=== PATIENT | male | born 1970 | race Caucasian/White ===

== ENCOUNTER 2023-08-14 14:47 | Emergency (ER) | payer SELFPAY ==
[2023-08-14 14:56] VITALS: BP 178/103; PULSE 68; RESP 18; TEMP 36.9; O2SAT 96; BMI 29.9
--- NOTE | 2023-08-14 15:20 | ED_ITS ---
HPI - Extremity Injury (Lower) General: Chief Complaint: Extremity Injury, Lower Stated Complaint: Left Knee Time Seen by Provider: 08/14/23 15:06 Source: patient Mode of arrival: wheelchair Limitations: no limitations History of Present Illness: Patient is a 52-year-old male who presents to the ED today for evaluation of a left knee injury that he sustained last week. Patient states he was working on his car when it fell off the iam causing it to roll and strike his left knee. Patient states he has been minimally ambulatory on the extremity but he feels like pain is not improving. He feels like knee is swollen. He feels like he tore something . complaint: knee injury Onset (ago): day(s) Injury: Left: knee Type of Injury: blunt Place: home Severity: moderate Relieving factors: immobilization Exacerbating factors: weight bearing, movement and palpation Context: direct blow Associated symptoms: Reports inability to bear weight Other symptoms: none Treatments prior to arrival: bandage Review of Systems Card: Denies: chest pain Resp: Denies: dyspnea Musc: Reports: joint pain (L knee) and joint swelling (L knee); Denies: joint redness or joint warmth Neuro: Denies: numbness in extremities or sensory changes Physical Exam Const: COMMON NORMALS: no acute distress, average body habitus, no limitations, healthy appearing, alert and well nourished Extremity: COMMON NORMALS: capillary refill normal, no clubbing, cyanosis or edema, no calf tenderness and no pedal edema GENERAL: Yes normal exam except as noted LEFT LOWER EXTREMITY: Yes knee joint (TTP posteriomedial L knee; effusion) Left knee: Yes ROM (limited ROM secondary to pain) and Yes neurovascular exam (normal) Neuro: COMMON NORMALS: moves all extremities, no focal motor deficits and no sensory deficits noted SENSORIUM/ORIENTATION: Yes alert Skin: TRAUMA: no lacerations or abrasions Course Vital Signs: Vital signs: Vital Signs Temperature 98.4 F 08/14/23 14:56 Pulse Rate 68 08/14/23 14:56 Respiratory Rate 18 08/14/23 14:56 Blood Pressure 178/103 08/14/23 14:56 Pulse Oximetry 96 08/14/23 14:56 Oxygen Delivery Me thod Room Air 08/14/23 14:56 MDM - Extremity Injury (Lower) Medical Decision Making Patient's XR is normal. Patient's exam I do have suspicion for possible internal derangement of the knee. I will have case management set him up with a primary care provider for further evaluation and possible ordering of an MRI if symptoms do not heal conservatively. He will continue with his current bracing. Crutches provided. Medical Records I reviewed the patient's medical records. Lab Data Radiology Impressions Knee X-Ray 08/14/23 15:23 IMPRESSION: 1. No fracture or other significant finding. All radiology interpretation(s) finalized by discharge Discharge Plan Discharge Patient Disposition: Home Clinical Impression: Acute internal derangement of knee Qualifiers: Laterality: left Qualified Code(s): M23.92 - Unspecified internal derangement of left knee Condition: Stable Prescriptions: New ibuprofen 800 mg tablet 800 mg PO Q8H PRN (Reason: pain) Qty: 20 0RF Discharge Orders: Discharge ED (Routine); Ordered 08/14/23 Ordered By: Remedios Morin Patient Instructions: Knee Pain (ED) Activity Restrictions/Additional Instructions: As we discussed your x-ray here was negative for bony injury. I suspect that you have some degree of internal derangement of the left knee. We will give you crutches to use as needed. Continue icing and elevating the extremity. Weight bearing as tolerated. I have written you a prescription for 800 mg ibuprofen. Do not take this with other anti-inflammatory such as your indomethacin. We will have you follow-up with primary care for further evaluation of the knee. You may require further evaluation with advanced imaging if knee does not heal conservatively. Please fill out and submit to the manager financial paperwork packet you were given today. Coding Level of Care Code ED Set Up [employer] for Musa Leiva
--- NOTE | 2023-08-14 15:23 | XR_ITS ---
WS: [id number] Exam: XR knee LT 3V* [id number] Date/Time of Exam: 08/14/2023 3:24 PM Reason For Exam: injury No fracture or dislocation. The joint compartments are preserved. No joint effusion identified. XR/XR knee LT 3V* [id number] IMPRESSION: 1. No fracture or other significant finding.
--- NOTE | 2023-08-15 10:18 | PC.SOCIAL ---
Message sent to Family medicine sent to establish primary care.
== END 2023-08-14 16:02 | disposition home or self-care (01) ==
PROVIDERS: Emergency Provider Physician Assistant
DX: M23.92 Unspecified internal derangement of left knee (principal)
CPT/HCPCS: 73562; 99283; E0114

== ENCOUNTER → 2023-09-04 09:39 | Outpatient (BNVA) | payer SELFPAY | PROVIDERS: PCP Family Medicine Adult Medicine; Visit Provider Physician Assistant | DX: M25.552 Pain in left hip (principal); G89.29 Other chronic pain | CPT/HCPCS: 73522 ==

== ENCOUNTER → 2024-07-03 12:58 | Outpatient (BNVA) | payer OTHER, SELFPAY | PROVIDERS: PCP Family Medicine Adult Medicine; Visit Provider Orthopaedic Surgery | DX: M54.16 Radiculopathy, lumbar region (principal) | CPT/HCPCS: 72110 ==

== ENCOUNTER → 2024-07-04 06:46 | Outpatient (BNVA) | payer OTHER, SELFPAY | PROVIDERS: PCP Family Medicine Adult Medicine; Visit Provider Student in an Organized Health Care Education/Training Program | DX: M16.12 Unilateral primary osteoarthritis, left hip (principal) | CPT/HCPCS: 77002 ==

== ENCOUNTER 2024-07-10 13:30 | Outpatient (CLI) | payer MEDICAID, SELFPAY ==
--- NOTE | 2024-07-10 13:45 | MR_ITS ---
WS: [id number] MRI LUMBAR SPINE NONCONTRAST HISTORY: lumbar pain radiating to both legs. COMPARISON: None available. TECHNIQUE: Sagittal and axial multisequence imaging is submitted. L5 anterolisthesis by 4.9 mm. Mild anterior wedging of L1 is chronic. Small hypertrophic osteophytes and mild disc space narrowing throughout the lumbar spine. Conus terminates normally at L1. L1-L2: Mild annular disc bulging and mild facet and ligamentum flavum hypertrophy. No significant stenosis. L2-L3: Mild annular disc bulge with ligamentum flavum and facet arthritis. No stenosis. L3-L4: Mild annular disc bulging with ligamentum flavum and facet arthritis. Fluid in the facet joints. No stenosis. L4-L5: Diffuse annular disc bulging with mild ligamentum flavum and facet arthritis. No central stenosis. Broad-based RIGHT foraminal disc protrusion. Mild bilateral foraminal stenosis, RIGHT greater than LEFT. L5-S1: Annular disc bulging with no central stenosis. Bilateral foraminal disc osteophyte complexes resulting in moderate bilateral stenosis. Paravertebral soft tissues are normal. MR/MR lumbar spine wo con* [id number] IMPRESSION: 1. Moderate bilateral foraminal stenosis at L5-S1 due to disc osteophyte and f acet disease. 2. L5 anterolisthesis by 4.9 mm. 3. Chronic anterior wedging of L1. 4. L4-5: Broad-based RIGHT foraminal disc protrusion. Mild bilateral foraminal stenosis, RIGHT greater than LEFT.
== END 2024-07-10 13:31 | disposition home or self-care (01) ==
PROVIDERS: PCP Family Medicine; Visit Provider Orthopaedic Surgery
DX: M54.16 Radiculopathy, lumbar region (principal); M79.604 Pain in right leg; M79.605 Pain in left leg; M48.07 Spinal stenosis, lumbosacral region; M25.78 Osteophyte, vertebrae; M47.897 Other spondylosis, lumbosacral region; M43.16 Spondylolisthesis, lumbar region; M48.56XD Collapsed vertebra, not elsewhere classified, lumbar region, subsequent encounter for fracture with routine healing; M51.26 Other intervertebral disc displacement, lumbar region; M48.061 Spinal stenosis, lumbar region without neurogenic claudication; M51.369 Other intervertebral disc degeneration, lumbar region without mention of lumbar back pain or lower extremity pain; M47.896 Other spondylosis, lumbar region; M24.28 Disorder of ligament, vertebrae; M51.379 Other intervertebral disc degeneration, lumbosacral region without mention of lumbar back pain or lower extremity pain
CPT/HCPCS: 72148

== ENCOUNTER 2024-08-17 11:28 | Emergency (ER) | payer MEDICAID, SELFPAY ==
[2024-08-17 11:28] VITALS: BP 146/90; PULSE 66; RESP 16; TEMP 36.9; O2SAT 93; BMI 29.9
--- NOTE | 2024-08-17 11:30 | ECG_ITS ---
[facility] Test Date: 2024-08-17 Pat Name: Philippe Brito Department: Room: Gender: Male Product Lead: : 1970 Requested By: Ceasar Parker Order Number: [id number] Reading MD: LUCA GILBERT Measurements Intervals Dwarf Rate: 64 P: 48 VA: 166 QRS: -14 QRSD: 98 T: 63 QT: 382 QTc: 397 Interpretive Statements SINUS RHYTHM POSSIBLE RIGHT VENTRICULAR CONDUCTION DELAY [RSR (QR) IN V1/V2] NONSPECIFIC T-WAVE ABNORMALITY No previous ECG available for comparison Electronically Signed On 08-20-2024 23:02:13 CDT by LUCA GILBERT [email or web address]
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
--- NOTE | 2024-08-17 11:44 | XRR_ITS ---
PROCEDURE INFORMATION: Exam: XR Chest Exam date and time: 08/17/2024 11:59 AM Age: 53 years old Clinical indication: Cough and dyspnea; Chest pain; SOB; Congestion; Cough TECHNIQUE: Imaging protocol: Radiologic exam of the chest. Views: 1 view. COMPARISON: No relevant prior studies available. FINDINGS: Lungs: Unremarkable. No consolidation. Pleural spaces: Unremarkable. No pleural effusion. No pneumothorax. Heart/Mediastinum: Unremarkable. No cardiomegaly. Bones/joints: Multiple old right-sided rib fracture deformities. XR/XR chest 1V portable [id number] IMPRESSION: No acute findings.
[2024-08-17 11:47] VITALS: BP 131/89; PULSE 70; O2SAT 93
[2024-08-17 12:43] LABS: Influenza A NEGATIVE (Negative); Influenza B NEGATIVE (Negative); Respiratory Syncytial Virus Ce NEGATIVE (Negative); SARS-CoV-2 PCR NEGATIVE (Negative)
[2024-08-17 13:17] VITALS: BP 136/88; PULSE 76; O2SAT 95
== END 2024-08-17 13:18 | disposition home or self-care (01) ==
PROVIDERS: Emergency Provider Family Medicine; PCP Family Medicine
DX: J06.9 Acute upper respiratory infection, unspecified (principal); Z11.52 Encounter for screening for COVID-19; Z72.0 Tobacco use; I10 Essential (primary) hypertension
CPT/HCPCS: 71045; 87637; 93005; 99284

== ENCOUNTER → 2024-10-28 14:10 | Outpatient (BNVA) | payer MEDICAID, SELFPAY | PROVIDERS: PCP Family Medicine; Visit Provider Orthopaedic Surgery | DX: Z01.818 Encounter for other preprocedural examination (principal) | CPT/HCPCS: 36415; 80053; 81001; 85025 ==

== ENCOUNTER 2024-11-10 11:14 | Observation (INO) | payer MEDICAID, SELFPAY ==
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
[2024-11-10] VITALS (24 sets, daily range): BP systolic 125–158; BP diastolic 76–104; PULSE 44–62; RESP 10–22; TEMP 36.1–36.7; O2SAT 89–97; BMI 29.2
--- NOTE | 2024-11-10 06:36 | W.PM.OPSUD ---
Surgery/Procedure H&P Update DATE OF PROCEDURE: November 10, 2024 DATE H&P PERFORMED: 10/28/24 H&P UPDATE INFORMATION: I have reviewed H&P completed within last 30 days, I have examined patient prior to procedure and No changes to prior documentation PREOP DIAGNOSIS: Lumbar stenosis PLANNED PROCEDURE: Operation Date: 11/10/24 07:00 Proposed Procedures p Spinal Fusion PSF(Not Applicable) - Caesar Wilkins DO
[2024-11-10] MEDS: ceFAZolin 2,000 mg SDV 2000 MG IVP ×2 (07:00→14:04)
[2024-11-10] MEDS: lidocaine-epi 1% 20 mL INJ INJECTION (08:27)
[2024-11-10] MEDS: tobramycin 40 mg/mL SDV 2mL 120 MG XX (08:28)
--- NOTE | 2024-11-10 10:47 | PM.OP ---
Operative Report Date of procedure: November 10, 2024 Pre-op diagnosis: L5/S1 spondylolisthesis Post-op diagnosis: same Procedure done: 1. L5/S1 Interbody fusion with posterolateral fusion 2. Instrumentation L5-S1 3. Cage at L5/S1 4. Use of computer navigation stereotactic for spine 5. use of autograft from same incision 6. allograft Surgeon: Caesar Wilkins DO Estimated blood loss (mL): 100 Procedure: 1. L5/S1 Interbody fusion with posterolateral fusion 2. Instrumentation L5-S1 3. Cage at L5/S1 4. Use of computer navigation stereotactic for spine 5. use of autograft from same incision 6. allograft Patient is brought to the operative suite after undergoing anesthesia was placed in the prone position. All areas of impingement were well-padded. Patient's prepped and draped in normal sterile fashion. Skin incision was made over the regular crest. 2 pins were placed into the right iliac crest and fiducial was attached. C-arm was then brought in and spun around the patient in order to facilitate using computer navigation and placed screws. Once navigation was complete using the Jamshidi to determine where the skin incisions were made the L5 and S1 pedicles are found skin incision was made and dissection was made down to the facet joints of L5 and S1. The S1 screw was placed first this was done by using the Jamshidi attached to the navigation. Wire was placed into the pedicle. And then a screw was placed over the wire into the pedicle. This was done at L5 and S1 bilaterally. Next attention was brought to placing the cage. The retractor was hooked up to the pedicle screws. And spread. The lamina and facet joint were identified on the left side. The laminectomy was performed using high-speed drill as well as the facetectomy. Curved curette and Kerrisons were used to take down the facet and the lamina. Ligamentum flavum was taken down. The disc space was then identified. Osteotome was used to take off a osteophyte posteriorly. And then the aicha were used up to 9. Size 9 trial was tried felt to be good and then a size 9 cage from [employer] was inserted. It was checked with AP and lateral fluoroscopy to ensure it is in good position. Next attention was brought to the facet joint on the right side. This was exposed through the tube and muscle was cleared off of it. Then high-speed bur was used to bur up the facet joint. And then bone graft was packed into the facet joint. Along the lateral gutter. Extension was brought to placing the rods. Rods were placed into the towers the delmar and screws. The S1 was locked into position. And then L5 was then reduced in order to facilitate reducing the L5-S1 spondylolisthesis. This was done bilaterally. Screws were torqued into position. Towers were broken up AP and lateral fluoroscopy ensured that the hardware was in good position. Wounds were irrigated and then closed in layered fashion with Vicryl and Monocryl suture. Sterile dressings were applied and patient is transferred to the PACU in stable condition.
[2024-11-10] MEDS: fentaNYL 50 mcg/mL INJ 2mL IVP ×2 (10:55→11:10)
--- NOTE | 2024-11-10 11:39 | ANE.PACU2 ---
Inpatient post-anesthesia follow up: Airway intact: Yes Vital signs: Temperature 97.9 F Pulse Rate 54 Respiratory Rate 18 Blood Pressure 125/82 Pulse Oximetry 95 Oxygen Delivery Me thod Room Air Oxygen Flow Rate 2 Fraction of Inspir ed Oxygen Hydration adequate: Yes Nausea and vomiting: No Pain level: 1 Mental status: Baseline
[2024-11-10] MEDS: morphine 4 mg/mL SDV 1 mL 2 MG IVP (12:48)
[2024-11-10] MEDS: HYDROcodone-acetaminophen 5-325 mg Tablet PO ×3 (12:48→21:31)
[2024-11-10 13:02] LABS: Hematocrit 40.4 % (37-53); Hemoglobin 14.20 g/dL (11.27-16.99); Mean Corpuscular HGB Conc 35.1 g/dL (30-55); Mean Corpuscular Hemoglobin 32.6 pg (27-33); Mean Corpuscular Volume 92.7 fl (82-101); Nucleated Red Blood Cells % 0 %; Platelet Count 166 10^3/cmm (157-399); Red Blood Count 4.36 10^6/uL (3.85-5.65); White Blood Count 12.04 10^3/uL (3.29-11.43)
--- NOTE | 2024-11-10 14:31 | XR_ITS ---
WS: [id number] Exam: XR lumbar spine 2-3V* [id number] Date/Time of Exam: 11/10/2024 2:31 PM Reason For Exam: OR PIC, FUSION DLP: Intraoperative AP and lateral C-arm images of the lower lumbar spine are submitted. There is posterior fusion at the L5-S1 level with pedicle screws and posterior rods. A disc spacer has been placed. Grade 1 spondylolisthesis of L5 on S1.
[2024-11-11] VITALS: BP 120/75; PULSE 58; RESP 16; TEMP 36.2; O2SAT 97
[2024-11-11] MEDS: ceFAZolin 2,000 mg SDV 2000 MG IVP ×2 (00:03→06:04)
[2024-11-11 03:59] VITALS: BP 106/66; PULSE 43; RESP 16; TEMP 36.7; O2SAT 97
[2024-11-11] MEDS: HYDROcodone-acetaminophen 5-325 mg Tablet PO (06:04)
[2024-11-11 07:29] VITALS: BP 128/71; PULSE 48; RESP 17; TEMP 36.6; O2SAT 95
--- NOTE | 2024-11-11 09:40 | PC.CHAP ---
Pastoral Care Encounter/Spiritual Assessment Type of Contact [] Declined tinter photograph visit [] Patient/Family/Request visit [] Outpatient visit [] Follow-up visit [] Physician referral [] Code/Alert [x] Routine visit [] Staff referral [] Actively dying [] Patient sleeping [] Family support [] [] Out of room [] Palliative care [] [] Receiving care in room [] Pre-surgical visit [] Trauma [] Long length of stay [] ICU visit [] Other: Relational/Emotional Strength [x] Patient feels connected with others/family/visitors/staff [] Distress [] Loneliness/isolation [] Abandonment Spirituality of Patient [x] Person of Dana [] Attends Yarsani of their Dana [x] Believes in Prayer [] Reads Bible or Gnosticist materials [] There are Spiritual issues to be addressed Dye Weigher Interventions [x] Prayer [x] Active listening [x] Non-anxious presence [x] Spiritual/emotional support [] Crisis/trauma care [] Spiritual counseling [] Bereavement support [] Provided bereavement packet [] Provided Bible/devotional materials [] Provided toy/stuffed animal, coloring book to patient or family member [] Provided Communion [] Anointing/Gardena [] Salvation [x] Completed spiritual assessment [] Other: Impact on Illness or Injury [] Angry [] Fearful [] Anxious [] Often cries [] Exhaustion [] Unable to work [] Unable to attend bahai [] Unable to walk/stand [] Unable to read [] Unable to drive [] Unable to eat/drink [] Unable to sleep [] Unable to be with family [] Patient intubated [] Other: Summary Time spent with patient 5 min
--- NOTE | 2024-11-11 09:59 | PM.DCS ---
Discharge Providers Date of Admission: 11/10/24 11:14 Date of Discharge: November 11, 2024 Attending Provider at Admission: Caesar Wilkins DO Attending Provider at Discharge: Caesar Wilkins DO Primary Care Provider: Saurabh Jose MD Reason for Visit Reason for Visit: M43.17 Physical Exam Narrative: Patient doing well patient says the pain now is better than it was before surgery. At this point is neurovasc intact bilateral lower extremities resting up in bed. Says been up walking with no difficulty. Urinary Catheter Management: Walter: Cath Placed During This Visit: yes, but has since been removed by the nurse Urinary Catheter Date of Insertion: 11/10/24 Urinary Catheter Time of Insertion: 07:20 Date Urinary Catheter Removed: 11/10/24 Time Urinary Catheter Discontinued: 15:47 Discharge Data Studies Completed and Pending Completed Studies During Hospitalization Category Date Time Status XR lumbar spine 2-3V* [id number] Routine Exams 11/10/24 14:31 Completed Pending at discharge Category Date Time Status C-arm Fluoroscopy [id number] Routine Exams 11/10/24 06:13 Taken Laboratory Results WBC 12.04 10^3/uL (3.29-11.43) H 11/10/24 12:53 RBC 4.36 10^6/uL (3.85-5.65) 11/10/24 12:53 Hgb 14.20 g/dL (11.27-16.99) 11/10/24 12:53 Hct 40.4 % (37-53) 11/10/24 12:53 MCV 92.7 fl (82-101) 11/10/24 12:53 MCH 32.6 pg (27-33) 11/10/24 12:53 MCHC 35.1 g/dL (30-55) 11/10/24 12:53 RDW 12.4 % (12.1-15.1) 11/10/24 12:53 Plt Count 166 10^3/cmm (157-399) 11/10/24 12:53 MPV 8.6 fL (7.4-10.4) 11/10/24 12:53 Neut % (Auto) 93.1 % 11/10/24 12:53 Lymph % (Auto) 5.3 % 11/10/24 12:53 [place] % (Auto) 1.1 % 11/10/24 12:53 Eos % (Auto) 0.1 % 11/10/24 12:53 Baso % (Auto) 0.2 % 11/10/24 12:53 Neut # (Auto) 11.20 10^3/uL (1.8-7.7) H 11/10/24 12:53 Lymph # (Auto) 0.6 10^3/uL (0.8-4.8) L 11/10/24 12:53 [place] # (Auto) 0.1 10^3/uL (0.2-0.9) L 11/10/24 12:53 Eos # (Auto) 0.0 10^3/uL (0.0-0.8) 11/10/24 12:53 Baso # (Auto) 0.0 10^3/uL (0.0-0.1) 11/10/24 12:53 Nucleated RBC % (auto) 0 % 11/10/24 12:53 Nucleated RBCs # 0.0 /100WBC 11/10/24 12:53 Blood Type A Negative 11/10/24 06:24 Rho(D) Type Rh negative 11/10/24 06:24 Antibody Screen Negative 11/10/24 06:24 Vitals Last Vital Signs Temp 97.8 F 11/11/24 07:29 Pulse 48 L 11/11/24 07:29 Resp 17 11/11/24 07:29 BP 128/71 11/11/24 07:29 Pulse Ox 95 11/11/24 07:29 O2 Del Method Room Air 11/11/24 07:29 O2 Flow Rate 2 11/10/24 14:35 Discharge Plan Discharge Patient Disposition: Home Condition: Stable Prescriptions: New hydrocodone-acetaminophen 5-325 mg tablet 1 - 2 tab PO .Q4-6H Qty: 40 0RF Continued tizanidine 4 mg tablet 4 mg PO BID PRN (Reason: muscle spasticity) Qty: 60 0RF albuterol sulfate 90 mcg/actuation HFA aerosol inhaler 2 inh INHALATION Q4H PRN (Reason: shortness of breath or wheezing) Qty: 18 0RF Held ibuprofen 800 mg tablet 800 mg PO Q8H PRN (Reason: pain) Qty: 60 0RF Hold Instructions: Resume on 02/11/25. Discharge Order = DC NOW: Discharge Order (Routine); Ordered 11/11/24 Ordered By: Caesar Wilkins Referrals: Caesar Wilkins, [Physician, Orthopedics] - 11/25/24 8:30 am Discharge Diet: Advance as tolerated Discharge Activity: Limit activity as instructed Patient Instructions: Acute Wound Care (DC), Opioid Safety, Post Anesthesia Care, Patient Portal & Uvaldo Instructions Activity Restrictions/Additional Instructions: Thank you for [facility] for your care! The following is a list of instructions, from your provider, to follow upon your discharge to ensure you have the optimal recovery from your recent injury orsurgery. Follow-up care is a roa part of your treatment and safety. Be sure to make and go to all appointments, and call your doctor if you are having problems. If you do not already have a follow-up appointment made, call Dr. Wilkins office in the next 1-3 days to make follow up appointment for 2 weeks at [phone]. It is also a good idea to know your test results and keep a list of the medicines you take. Medications will be prescribed for you at your provider's discretion. These medications are to be used as instructed; if they are taken more often that prescribed they will not be refilled early and in most cases will not be refilled at all. > When a refill is needed,you should contact sukhi nolan 2-3 business days before your prescription runs out. Medications will NOT be refilled by oxidation engineer providers after hours! > Many pain medications contain Tylenol (Acetaminophen). Do not consume more than 4,000 mg of Tylenol per day in total with any combination ofmedications. > Pain medications can cause constipation. Please use an over the counter stool softener as directed, while taking pain medications. Consulty our local pharmacist with questions or recommendations on stool softeners. If constipation persists, contact our office or your primary care provider. > While under our care,you are not to receive pain medications or other controlled substances from any other provider unless our office is notified and approves. Any attempts to do so will result in refusal to prescribe any further pain medications and possible dismissal from our practice. ? Your wound and/or dressing should remain clean and dry for 2 days after surgery. On postoperative day 2 (48 hours after your surgery) the dressing (if present) should be removed and it is okay to shower and get the incision wet. Pad dry afterwards. No further dressing should be required from that point on. Do not put any creams or ointments on theincision > It is normal for there to be a small amount of discharge (bloody or blood tinged) present from a surgical wound for the first 1-3days. > The wound should be examined twice a day for signs of infection. Mild redness or bruising is to be expected but indications that an infection maybe starting would include; An increase in redness, swelling, or discharge, a foul odor present around the incision, and/or a fever greater than 101 ?F ? Showering is permitted, however we ask that you do not take a bath, sit in a whirlpool / Jacuzzi, or go swimming for 1 month. For only the first 2 days after surgery, lt wilt be necessary for you to cover your wound/dressing with plastic and tape to keep it dry. ? Walking is essential for the healing process after surgery. We would like you to slowly advance your walking. This should be done on relatively flat clear ground (inside or out) or can be done on a treadmill. Remember this goal does not have to happen all at once, slowly increase your distance and duration. This can be broken into more more than one walk per day as tolerated. Patients who walk as directed after surgery rarely require Physical Therapy. In the unlikely event this issue arises your provider will direct hospital staff to make the appropriate arrangements. ? No lifting over 5 pounds {a gallon of milk) or bending/twisting until further notice. Each of these activities places an unnecessary amount of stress onto the body and can impede the delicate healing process. > Instead of bending at the waist, keep your back straight and bend at the knees. > Instead of twisting your torso, keep your back straight and turn your entire body with your feet. ? You may sleep in any position which makes you comfortable. Many patients find comfort sleeping in a reclining chair. It is not abnormal to have difficulty sleeping for the first several weeks following your surgery. We recommend trying Benadry! or Tylenol PM as directed to help with your sleeping difficulties. Both medications are over the counter and available withoutprescription. ? NO SMOKING!!! Smoking dramatically increases the probability of developing postoperative wound infections. ? Common complaints after lumbar and/or thoracic spine surgery include, but are not limited to: numbness and/or tingling in the legs, pain around the incision and surrounding tissues, muscle spasms, or stiffness of the middle to low back. Contact our office if these symptoms persist or if an acute change occurs. ? No driving for the first 3-5days, and not while taking narcotics until seen at your follow-up appointment and cleared. There are no restrictions for riding on short trips, however if you take a longer trip, arrangements should be made to make regular stops to get out of the vehicle and stretch . ? Swelling is an unfortunate event that will take place with any surgery and is the primary source of your postoperative discomfort. While walking and regular approved activities helps control inflammation, there are additional steps you can take to minimizeswelling. > Place ice over the surgical site and surrounding tissue for twenty minutes, followed by applying a low/medium heat (heating pad) for an additional twenty minutes every 1-2 hours as needed for painrelief. > You may use of over the counter anti-inflammatory medications (Ibuprofen, Motrin, Aleve, Advil, etc) as directed on the package label. These types of medicines wm significantly reduce the amount of discomfort you experience after surgery from swelling. It should be noted that if you have and allergy to any of these medications, or a history of ulcers or kidney disease you should consult you primary care provider prior to starting these medications. Discharge Attestations Time Spent in Discharge Care*: less than 30 min Quality Metrics Clinical Quality Measures [ No reported AMI, CVA or VTE this stay] Coding Level of Care Code Acute Code for Chg Cali
[2024-11-11 11:15] VITALS: BP 152/85; PULSE 43; RESP 18; TEMP 36.8; O2SAT 96
[2024-11-11 11:17] VITALS: BP 152/85; PULSE 43; RESP 18; TEMP 36.8; O2SAT 96
--- NOTE | 2024-11-11 13:06 | PC.NURSE ---
Discussed discharge instructions with patient. Discussed in depth not to twist or bend. Taught the appropriate way to move and not to lift any thing over a 5 gallon jug of milk. Discussed medications and patient verbalized understanding.
== END 2024-11-11 11:30 | disposition home or self-care (01) ==
LOC: MEDSURG 11:17
PROVIDERS: Admitting Provider Orthopaedic Surgery; PCP Family Medicine; Visit Provider Orthopaedic Surgery
PROC: (CPT 22633; principal; 2024-11-10 07:00)
DX: M43.17 Spondylolisthesis, lumbosacral region (principal); K21.9 Gastro-esophageal reflux disease without esophagitis; F17.200 Nicotine dependence, unspecified, uncomplicated; I10 Essential (primary) hypertension
CPT/HCPCS: 22633; 22853; 61783; 20930; 20936; 22840; 51702; 72100; 76000; 85025; 86850; 86900; 97116; 97161; C1713; C1776; G0378; J0131; J0690; J1100; J1171; J1644; J1885; J2250; J2270; J2371; J2405; J2704; J2710; J3010; J3260; J3373; J3490; J7030; J7120; J9999; P9045

== ENCOUNTER 2024-11-12 09:17 | Emergency (ER) | payer MEDICAID, SELFPAY ==
[2024-11-12 09:26] VITALS: BP 157/94; PULSE 51; RESP 16; TEMP 37; O2SAT 97; BMI 29.2
--- NOTE | 2024-11-12 10:21 | XR_ITS ---
WS: [id number] Exam: XR abdomen 1V* [id number] Date/Time of Exam: 11/12/2024 10:55 AM Reason For Exam: abd pain DLP: No bowel obstruction or pneumoperitoneum. Large amount of retained stool noted throughout the colon. No sign of organ enlargement. Operative fusion of the spine at the L5-S1 level. Moderate distention of urinary bladder. Bony structures are intact. XR/XR abdomen 1V* [id number] IMPRESSION: 1. Constipation. No acute abdominal finding.
[2024-11-12 11:52] VITALS: O2SAT 97
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
[2024-11-12 12:07] LABS: Hematocrit 38.0 % (37-53); Hemoglobin 12.80 g/dL (11.27-16.99); Mean Corpuscular HGB Conc 33.7 g/dL (30-55); Mean Corpuscular Hemoglobin 31.4 pg (27-33); Mean Corpuscular Volume 93.1 fl (82-101); Nucleated Red Blood Cells % 0 %; Platelet Count 162 10^3/cmm (157-399); Red Blood Count 4.08 10^6/uL (3.85-5.65); White Blood Count 8.29 10^3/uL (3.29-11.43)
[2024-11-12 12:26] LABS: Alanine Aminotransferase 26 U/L (0-41); Albumin Level 4.2 g/dL (3.5-5.2); Alkaline Phosphatase 53 U/L (40-130); Anion Gap 14.8 (5-19); Aspartate Amino Transferase 27 U/L (0-40); Blood Urea Nitrogen 12 mg/dL (6-20); Calcium 9.4 mg/dL (8.5-10.5); Carbon Dioxide 27 mmol/L (22-29); Chloride 102 mmol/L (98-107); Creatinine Clr Calc Pharmacy 111.8133; Globulin 2.4 g/dL (1.3-4.6); Glucose 85 mg/dL (65-115); Osmolality Calculated 289 mOsm/kg (285-295); Potassium 3.8 mmol/L (3.5-5.1); Sodium 140 mmol/L (136-145); Total Protein 6.6 g/dL (6.6-8.7)
[2024-11-12] MEDS: orphenadrine 30 mg/mL Inj 2 mL 60 MG IM (12:32)
[2024-11-12] MEDS: morphine 4 mg/mL SDV 1 mL IVP (12:37)
[2024-11-12 14:45] VITALS: BP 167/99; PULSE 45; O2SAT 96
== END 2024-11-12 15:31 | disposition home or self-care (01) ==
PROVIDERS: Emergency Medicine; Emergency Provider Family Medicine; PCP Family Medicine
DX: K59.00 Constipation, unspecified (principal); Z72.0 Tobacco use; I10 Essential (primary) hypertension; Z98.890 Other specified postprocedural states
CPT/HCPCS: 36415; 74018; 80053; 85025; 96372; 96374; 96375; 99284; J1100; J1885; J2270; J2360

== ENCOUNTER 2024-12-06 11:15 | Emergency (ER) | payer MEDICAID, SELFPAY ==
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
[2024-12-06 11:47] VITALS: BP 137/91; PULSE 68; RESP 18; TEMP 36.6; O2SAT 95; BMI 29.2
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
[2024-12-06 12:03] VITALS: BP 126/94; PULSE 80; O2SAT 98
[2024-12-06] MEDS: HYDROcodone-acetaminophen 5-325 mg Tablet 1 TAB PO (12:03)
--- NOTE | 2024-12-08 07:46 | DCPLANNER ---
messaged ortho for er f/u
== END 2024-12-06 12:06 | disposition home or self-care (01) ==
PROVIDERS: Emergency Provider Emergency Medicine; PCP Family Medicine
DX: M70.22 Olecranon bursitis, left elbow (principal); Z72.0 Tobacco use; I10 Essential (primary) hypertension
CPT/HCPCS: 99283; J9999

== ENCOUNTER → 2024-12-15 11:11 | Outpatient (BNVA) | payer MEDICAID, SELFPAY | PROVIDERS: PCP Family Medicine; Visit Provider Nurse Practitioner | DX: M25.522 Pain in left elbow (principal) | CPT/HCPCS: 73080 ==

== ENCOUNTER → 2024-12-23 13:12 | Outpatient (BNVA) | payer MEDICAID, SELFPAY | PROVIDERS: PCP Family Medicine; Visit Provider Orthopaedic Surgery | DX: Z98.890 Other specified postprocedural states (principal); Z98.1 Arthrodesis status | CPT/HCPCS: 72100 ==

== ENCOUNTER 2024-12-24 11:07 | Outpatient (CLI) | payer MEDICAID, SELFPAY ==
--- NOTE | 2024-12-24 11:45 | MR_ITS ---
WS: [id number] MRI LEFT ELBOW WITHOUT CONTRAST. COMPARISON: Radiograph 12/15/2024 Multiplanar, multisequence imaging is performed without contrast. There is a large complex fluid collection posterior to the olecranon consistent with olecranon bursitis. This is a complex collection measuring 5.1 x 2.2 cm. Additional soft tissue inflammation extending above and below the focal bursitis. This is not a simple collection and extends to about the olecranon in the distal triceps tendon. The small bone fragment is seen radiographically is not definitely visualized by MRI. There is no marrow signal abnormality within the bone. No evidence for edema or osteomyelitis. Normal alignment at the elbow joint. Biceps tendon, brachialis tendon and the brachioradialis tendon and the muscles are normal. Ulnar and radial collateral ligaments and the extensor and flexor tendons are normal. There is a very small well-circumscribed bone fragment measuring 3 mm adjacent to the lateral epicondyle. This is probably from a prior injury ligament injury. No definite acute tears are identified. MR/MR elbow LT con* [id number] IMPRESSION: 1. Large complex fluid collection consistent with olecranon bursitis measuring 5.1 x 2.2 cm. Complex olecranon bursitis. Differentials to consider are infect ion, gout, posttraumatic or rheumatoid arthritis. 2. No fractures or marrow edema identified. 3. 3 mm remote avulsion fracture from the lateral epicondyle.
== END 2024-12-24 11:08 | disposition home or self-care (01) ==
PROVIDERS: PCP Family Medicine; Visit Provider Nurse Practitioner
DX: M70.22 Olecranon bursitis, left elbow (principal); S42.432A Displaced fracture (avulsion) of lateral epicondyle of left humerus, initial encounter for closed fracture; X58.XXXA Exposure to other specified factors, initial encounter
CPT/HCPCS: 73221

== ENCOUNTER → 2025-01-09 11:37 | Outpatient (BNVA) | payer MEDICAID, SELFPAY | PROVIDERS: PCP Family Medicine; Visit Provider Nurse Practitioner | DX: R22.32 Localized swelling, mass and lump, left upper limb (principal) | CPT/HCPCS: 87075 ==

== ENCOUNTER 2025-02-02 09:00 | Emergency (ER) | payer MEDICAID, SELFPAY ==
[2025-02-02 09:06] VITALS: BP 151/93; PULSE 80; RESP 17; TEMP 36.9; O2SAT 98; BMI 29.2
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
[2025-02-02] MEDS: methylPREDNISolone sod succ 125 mg/2 mL INJ IVP (09:38)
[2025-02-02 10:15] VITALS: BP 154/103; PULSE 82; O2SAT 97
== END 2025-02-02 10:19 | disposition home or self-care (01) ==
PROVIDERS: Emergency Provider Physician Assistant; PCP Family Medicine
DX: M10.9 Gout, unspecified (principal); Z72.0 Tobacco use; I10 Essential (primary) hypertension
CPT/HCPCS: 96372; 96374; 99284; J1885; J2919; J9999

== ENCOUNTER 2025-02-15 12:22 | Emergency (ER) | payer MEDICAID, SELFPAY ==
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
[2025-02-15 13:02] VITALS: BP 150/99; PULSE 72; RESP 18; TEMP 36.7; O2SAT 97; BMI 29.2
--- NOTE | 2025-02-15 13:20 | XRR_ITS ---
PROCEDURE INFORMATION: Exam: XR Right Foot Exam date and time: 02/15/2025 1:29 PM Age: 54 years old Clinical indication: Pain; Foot; Right; Additional info: Pain for weeks to top of foot TECHNIQUE: Imaging protocol: Radiologic exam of the right foot. Views: 3 or more views. COMPARISON: CR XR ankle RT min 3V* [id number] 02/15/2025 1:29 PM FINDINGS: Bones/joints: There is no fracture or dislocation. There is mild midfoot polyarticular degenerative osteoarthropathy. There is minimal chronic enthesophyte formation present at the plantar aponeurosis attachment to the calcaneus. Soft tissues: Normal. XR/XR foot RT min 3V* [id number] IMPRESSION: No acute process.
--- NOTE | 2025-02-15 13:24 | XRR_ITS ---
PROCEDURE INFORMATION: Exam: XR Right Ankle Exam date and time: 02/15/2025 1:29 PM Age: 54 years old Clinical indication: Pain; Ankle; Right; Additional info: Pain to medial ankle TECHNIQUE: Imaging protocol: Radiologic exam of the right ankle. Views: 3 or more views. COMPARISON: CR (LOW EXM, ) 02/15/2025 1:29 PM FINDINGS: Bones/joints: The talar dome is intact. The ankle mortise is congruent. There is mild tibiotalar joint degenerative osteophytosis. There is chronic enthesophyte formation present at the plantar aponeurosis attachment to the calcaneus. Soft tissues: There is minimal anterior ankle soft tissue swelling. XR/XR ankle RT min 3V* [id number] IMPRESSION: 1. Mild tibiotalar joint degenerative osteoarthritis 2. Mild anterior ankle soft tissue swelling
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
[2025-02-15] MEDS: methylPREDNISolone sod succ 125 mg/2 mL INJ IM (13:29)
[2025-02-15 14:00] VITALS: BP 135/103; PULSE 73; O2SAT 96
[2025-02-15 14:06] VITALS: BP 138/100; PULSE 88; O2SAT 97
== END 2025-02-15 14:07 | disposition home or self-care (01) ==
PROVIDERS: Emergency Provider Physician Assistant; PCP Family Medicine
DX: M19.071 Primary osteoarthritis, right ankle and foot (principal); Z72.0 Tobacco use; I10 Essential (primary) hypertension
CPT/HCPCS: 73610; 73630; 96372; 99284; J1100; J1885; J2919

== ENCOUNTER → 2025-02-24 13:33 | Outpatient (BNVA) | payer MEDICAID, SELFPAY | PROVIDERS: PCP Family Medicine; Visit Provider Podiatrist Foot & Ankle Surgery | DX: M79.671 Pain in right foot (principal); M10.9 Gout, unspecified | CPT/HCPCS: 73630 ==